=== PATIENT | female | born 1980 | race Two or more races ===

== ENCOUNTER 2021-10-30 13:45 | Inpatient (IN) | payer OTHER ==
[2021-10-30] MEDS ORDERED: LOPERAMIDE HCL 2 MG CAPSULE PO PRN (15:56)
[2021-10-30] MEDS ORDERED: MENTHOL/PHENOL 1 EACH UD MM PRN (15:56)
[2021-10-30] MEDS ORDERED: chlordiazePOXIDE HCL 25 MG CAPSULE PO PRN (15:56)
[2021-10-30] MEDS ORDERED: ONDANSETRON *ODT* 4 MG TABLET SL PRN (15:56)
[2021-10-30] MEDS ORDERED: METHOCARBAMOL 500 MG TABLET PO PRN (15:56)
[2021-10-30] MEDS ORDERED: BISMUTH SUBSALICYLATE 524 MG/30 ML PO PRN (15:56)
[2021-10-30] MEDS ORDERED: ACETAMINOPHEN 325 MG TABLET (FP) PO PRN ×2 (15:56)
[2021-10-30] MEDS ORDERED: IBUPROFEN 400 MG TABLET (FP) PO PRN (15:56)
[2021-10-30] MEDS ORDERED: MAGNESIUM HYDROX 2400MG/30ML ORAL SUSPENSION 30 ML CUP PO PRN (15:56)
[2021-10-30] MEDS ORDERED: MAGNESIUM CITRATE 300 ML BOTTLE PO PRN (15:56)
[2021-10-30] MEDS ORDERED: MAG HYDROX/AL HYDROX/SIMETH 30 ML UNIT-DOSE CUP PO PRN (15:56)
[2021-10-30] MEDS ORDERED: NICOTINE 10 MG CARTRIDGE (INHALER) IH PRN (15:56)
[2021-10-30 19:58] VITALS: BMI 22.6
[2021-10-30] MEDS ORDERED: chlordiazePOXIDE HCL 25 MG CAPSULE ONE (20:26)
[2021-10-30] MEDS: chlordiazePOXIDE HCL 25 MG CAPSULE PO SCH ×2 (20:32→23:47)
[2021-10-30] MEDS: hydrOXYzine PAMOATE 25 MG CAPSULE (FP) PO SCH ×2 (23:47→23:49)
[2021-10-30] MEDS: THIAMINE HCL 100 MG TABLET (FP) PO SCH (23:47)
[2021-10-30] MEDS: MELATONIN 5 MG TABLETS PO SCH (23:48)
[2021-10-31] MEDS: chlordiazePOXIDE HCL 25 MG CAPSULE PO SCH ×4 (07:34→22:22)
[2021-10-31] MEDS: hydrOXYzine PAMOATE 25 MG CAPSULE (FP) PO SCH ×5 (07:35→22:22)
[2021-10-31 10:21] LABS: HEMATOCRIT 35.9 % (32.4-45.2); HEMOGLOBIN 11.6 GM/dL (10.7-15.3); MCH 30.6 pg (25.7-33.7); MCHC 32.2 g/dl (32.0-36.0); MEAN PLT VOLUME 9.9 fl (7.5-11.1); PLATELET COUNT 114 10^3/uL (134-434); RBC 3.78 M/mm3 (3.60-5.2); RDW 15.4 % (11.6-15.6); WHITE BLOOD COUNT 3.9 K/mm3 (4.0-10.0)
[2021-10-31 10:32] LABS: CALCIUM 8.8 mg/dL (8.5-10.1)
[2021-10-31 10:33] LABS: BLOOD UREA NITROGEN 8.4 mg/dL (7-18)
[2021-10-31 10:36] LABS: CREATININE 0.6 mg/dL (0.55-1.3)
[2021-10-31 10:37] LABS: TOT PROT 6.7 g/dl (6.4-8.2)
[2021-10-31 10:40] LABS: BILIRUBIN,TOTAL 0.6 mg/dL (0.2-1)
[2021-10-31] MEDS: PRENATAL VITAMINS W/ FOLIC ACID TABLET (FP) PO SCH (10:42)
[2021-10-31 14:08] LABS: SARS-CoV-2 NAA Not Detected (Not Detected)
[2021-10-31] MEDS: HALOPERIDOL 5 MG TABLET PO SCH (22:22)
[2021-10-31] MEDS: BENZTROPINE MESYLATE 1 MG TABLET PO SCH (22:22)
[2021-10-31] MEDS: THIAMINE HCL 100 MG TABLET (FP) PO SCH (22:22)
[2021-10-31] MEDS: MELATONIN 5 MG TABLETS PO SCH (22:22)
[2021-11-01 00:13] LABS: HIV INTERPRETATION NEGATIVE (NEGATIVE)
[2021-11-01] MEDS: chlordiazePOXIDE HCL 25 MG CAPSULE PO SCH ×4 (05:53→22:37)
[2021-11-01] MEDS: hydrOXYzine PAMOATE 25 MG CAPSULE (FP) PO SCH ×5 (05:53→22:12)
[2021-11-01 08:08] LABS: SARS-CoV-2 NAA Not Detected (Not Detected)
[2021-11-01] MEDS: PRENATAL VITAMINS W/ FOLIC ACID TABLET (FP) PO SCH (10:44)
[2021-11-01] MEDS: HALOPERIDOL 5 MG TABLET PO SCH (22:12)
[2021-11-01] MEDS: THIAMINE HCL 100 MG TABLET (FP) PO SCH (22:12)
[2021-11-01] MEDS: BENZTROPINE MESYLATE 1 MG TABLET PO SCH (22:12)
[2021-11-01] MEDS: MELATONIN 5 MG TABLETS PO SCH (22:12)
[2021-11-02] MEDS ORDERED: chlordiazePOXIDE HCL 10 MG CAPSULE PO PRN
[2021-11-02] MEDS: chlordiazePOXIDE HCL 10 MG CAPSULE PO SCH ×3 (06:24→17:56)
[2021-11-02] MEDS: hydrOXYzine PAMOATE 25 MG CAPSULE (FP) PO SCH ×3 (06:24→14:53)
[2021-11-02] MEDS: PRENATAL VITAMINS W/ FOLIC ACID TABLET (FP) PO SCH (10:27)
[2021-11-02 17:47] VITALS: BP 146/97; PULSE 103; TEMP 97.1
[2021-11-03] MEDS ORDERED: chlordiazePOXIDE HCL 10 MG CAPSULE PO SCH (05:00)
[2021-11-04] MEDS ORDERED: chlordiazePOXIDE HCL 10 MG CAPSULE PO ONE (05:00)
== END 2021-11-02 18:56 | disposition left against medical advice (07) | DRG 770 ==
LOC: YASAS 13:45 → Y3N 21:18
PROVIDERS: ADMIT Allergy & Immunology; ATTEND Allergy & Immunology
PROC: HZ2ZZZZ Detoxification Services for Substance Abuse Treatment (ICD-10-PCS; principal; 2021-10-30)
DX: F10.230 Alcohol dependence with withdrawal, uncomplicated (principal); F17.210 Nicotine dependence, cigarettes, uncomplicated; F20.9 Schizophrenia, unspecified; F10.24 Alcohol dependence with alcohol-induced mood disorder; I10 Essential (primary) hypertension; J45.909 Unspecified asthma, uncomplicated; M54.50 Low back pain, unspecified; G89.29 Other chronic pain; Z59.00 Homelessness unspecified
CPT/HCPCS: 36415; 80053; 85027; 86780; 87389; C9803-CS; U0003; U0005